=== PATIENT | male | born 1985 | race Caucasian/White ===

== ENCOUNTER 2022-04-18 10:48 | Emergency (ER) | payer SELFPAY ==
[~2022-04-18] VITALS: Ht 177.8 cm; Wt 82.0 kg
[2022-04-18] MEDS ORDERED: KETOROLAC 30MG/ML VIAL IV STA (10:55)
[2022-04-18 12:00] LABS: CHLORIDE 110 mEq/L (98-107)
[2022-04-18] MEDS ORDERED: MORPHINE SULFATE 4 MG/ML CPJ (NOT FOR IM USE) IV ONE ×2 (12:15→14:30)
[2022-04-18 12:21] LABS: BASOPHILS % 0.4 % (0.0-2.0); EOSINOPHILS % 0.2 % (0.0-5.0); HEMATOCRIT. 46.1 % (42.0-52.0); HEMOGLOBIN. 15.7 g/dL (14.0-18.0); LYMPHOCYTES % 17.1 % (20.0-50.0); MEAN CORPUSCULAR HEMOGLOBIN 28.6 pg (28.0-32.0); MEAN CORPUSCULAR VOLUME 84.3 fL (80.0-94.0); MEAN PLATELET VOLUME 8.5 fl (7.4-10.4); MONOCYTES % 6.2 % (2.0-8.0); NEUTROPHILS % 76.1 % (40.0-76.0); PLATELET 361 x1000/uL (130-400); RED BLOOD CELL COUNT 5.47 mill/uL (4.7-6.1); RED CELL DISTRIBUTION WIDTH 12.9 % (11.6-14.6)
[2022-04-18 12:37] LABS: CLARITY URINE CLOUDY (CLEAR); COLOR URINE DARK YELLOW (YELLOW); KETONES URINE TRACE (NEGATIVE); LEUKOCYTE ESTERASE URINE 1+ (NEGATIVE); NITRITE URINE NEGATIVE (NEGATIVE); OCCULT BLOOD URINE 3+ (NEGATIVE); PH URINE 5.5 (4.5-8.0); PROTEIN URINE 2+ (NEGATIVE)
[2022-04-18 13:12] LABS: *AMPHETAMINES SCREEN URINE NEGATIVE (NEGATIVE); *BARBITURATES SCREEN URINE NEGATIVE (NEGATIVE); *BENZODIAZEPINES SCREEN URINE NEGATIVE (NEGATIVE); *COCAINE SCREEN URINE NEGATIVE (NEGATIVE); CANNABINOID URINE SCREEN PRESUMTIVE POSITIVE (NEGATIVE); METHADONE URINE SCREEN NEGATIVE (NEGATIVE); OPIATES URINE SCREEN NEGATIVE (NEGATIVE); PHENCYCLIDINE URINE SCREEN NEGATIVE (NEGATIVE)
[2022-04-18] MEDS ORDERED: CEFTRIAXONE 1 G PREMIX 50 ML IV SCH (13:30)
[2022-04-18] MEDS ORDERED: HYDR-4001 MT (14:20)
[2022-04-18] MEDS ORDERED: ONDA8TAB13 MT (14:20)
[2022-04-18] MEDS ORDERED: TAMS-11 MT (14:21)
[2022-04-18] MEDS ORDERED: NITR-87 MT (14:42)
[2022-04-18 14:50] VITALS: BP 139/75
== END 2022-04-18 16:45 | disposition home or self-care (01) ==
LOC: ER 10:48
DX: N20.0 Calculus of kidney (principal); N39.0 Urinary tract infection, site not specified; F12.90 Cannabis use, unspecified, uncomplicated
CPT/HCPCS: 36415; 76770; 80053; 80305; 81003; 83690; 85025; 96374; 96375; 96376; 99284; J0696; J1885; J2270